=== PATIENT | male | born 1960 | race Caucasian/White ===

== ENCOUNTER → 2017-01-06 | Outpatient (CLI) | payer OTHER ==
--- NOTE | ~2017-01-06 | CR242 ---
[facility] A Service [facility] RADIOLOGY TEXT RESULTS PATIENT: BRENDA FELIX LOCATION: [facility] : 64 UNIT #: [id number] AGE: [address]: Kofi Grullon MD SEX: M ORDER DR: [id number] [address] [address] [id number] O MR#: [id number] Acc #: [id number] NAME: BRENDA FELIX : 1960 SEX: M STUDY DATE/TIME: 01/06/2017 16:38 UNIT: [facility] ROOM: STUDY DESCRIPTION: CR Thoracic Spine 2 Views Attending Physician: Kofi Grullon M.D. Referring Physician: Kofi Grullon M.D. Ordering Physician: Kofi Grullon M.D. MEDICAL IMAGING REPORT This report is preliminary unless electronic signature is present EXAM Thoracic spine plain films HISTORY Pain in neck that radiates distally. Pain centralized in the mid-back. Symptoms for 2-3 months. Patient fell a few years ago but pain has worsened in the past 2-3 months. TECHNIQUE AP, lateral and swimmer's views of the thoracic spine reviewed. COMPARISON STUDIES None. FINDINGS There is normal alignment. No acute fracture is suspected. No bone destruction suspected. IMPRESSION Negative plain film assessment of the thoracic spine. Dictated by... Jo Ivy M.D. THIS IS AN ELECTRONICALLY VERIFIED REPORT Jo Ivy M.D. at 01/07/2017 10:45 AM SAC/pcl TD: 01/06/2017 21:38 JOB #: [id number] [facility] A Service [facility] RADIOLOGY TEXT RESULTS PATIENT: BRENDA FELIX LOCATION: [facility] : 64 UNIT #: [id number] AGE: [address]: Kofi Grullon MD SEX: M ORDER DR: MEDICAL IMAGING REPORT Page 1 of 1 COPY
--- NOTE | ~2017-01-06 | CR181 ---
[facility] A Service of [facility] RADIOLOGY TEXT RESULTS PATIENT: BRENDA FELIX [id number] : 64 UNIT #: [id number] AGE: [address]: Kofi Grullon MD SEX: M ORDER DR: [id number] [facility] [address] [place], [place] [address] [id number] O MR#: [id number] Acc #: [id number] NAME: BRENDA FELIX : 1960 SEX: M STUDY DATE/TIME: 01/06/2017 16:41 UNIT: [facility] ROOM: STUDY DESCRIPTION: CR Lumbar Spine 2 or 3 Views Attending Physician: Kofi Grullon M.D. Referring Physician: Kofi Grullon M.D. Ordering Physician: Kofi Grullon M.D. Primary Care Physician: Primary Care Physician No MEDICAL IMAGING REPORT This report is preliminary unless electronic signature is present EXAM Lumbar spine plain film series HISTORY Back pain, worse for the past 2-3 months. Fell a few years ago. COMMENT AP, lateral and lumbosacral views of the lumbar spine are reviewed. COMPARISON No previous FINDINGS There is mild exaggeration of lumbar lordosis. Subtle lower lumbar dextroconvex scoliosis. There is endplate spondylosis best appreciated at L3-L4 with some anterior endplate spondylosis upper margin of L3. There is loss of disc height at L4-L5 and L5-S1, which is approximately moderate and milder loss of disc height than the 3-4 level. This likely is some lower lumbar facet arthritis. No acute fracture or bone destruction. If more information is needed, the patient is best assessed further with a MRI if a candidate. There are vascular calcifications present. IMPRESSION Plain film evidence for lumbar degenerative disease. If more information is needed and the patient is a candidate, he is best assessed further with a MRI. Dictated by... Jo Ivy M.D. [facility] A Service [facility] RADIOLOGY TEXT RESULTS PATIENT: BRENDA FELIX LOCATION: [facility] #: [id number] : 64 UNIT #: [id number] AGE: [address]: Kofi Grullon MD SEX: M ORDER DR: THIS IS AN ELECTRONICALLY VERIFIED REPORT Jo Ivy M.D. at 01/07/2017 10:45 AM SAC/to TD: 01/06/2017 21:39 JOB #: [id number] MEDICAL IMAGING REPORT Page 1 of 1 COPY
--- NOTE | ~2017-01-06 | CR58 ---
[facility] A Service of [facility] RADIOLOGY TEXT RESULTS PATIENT: BRENDA FELIX LOCATION: [facility] : 64 UNIT #: [id number] AGE: [address]: Kofi Grullon MD SEX: M ORDER DR: [id number] [facility] [address] [place], [place] [address] [id number] O MR#: [id number] Acc #: [id number] NAME: BRENDA FELIX : 1960 SEX: M STUDY DATE/TIME: 01/06/2017 16:32 UNIT: [facility] ROOM: STUDY DESCRIPTION: CR Cervical Spine 2 or 3 Views Attending Physician: Kofi Grullon M.D. Referring Physician: Kofi Grullon M.D. Ordering Physician: Kofi Grullon M.D. MEDICAL IMAGING REPORT This report is preliminary unless electronic signature is present EXAM Cervical spine plain films HISTORY Pain in neck radiating distally. Pain is centralized in the mid-back. Symptoms for 2-3 months. Patient fell 2 years ago and landed on his head but pain has worsened in last 2-3 months. Neck pain and back pain. TECHNIQUE AP, lateral, odontoid views of the cervical spine reviewed. COMPARISON STUDIES None. FINDINGS There is exaggerated cervical lordosis and about 3-4 mm of retrolisthesis of C5 on C6. There is associated loss of disc height and endplate spondylosis, worse posteriorly. There is also loss of disc height and endplate spondylosis at C4-C5. I suspect the retrolisthesis is degenerative but I recommend the patient undergo passive flexion/extension imaging of the cervical spine to evaluate for abnormal motion. There is also facet degenerative change at C7-T1. The prevertebral soft tissues are normal. No acute fracture is suspected. Cervical vertebral bodies are seen from C1 to the top of T1. Vascular calcification noted at carotid bifurcation levels but this is best pursued with carotid Doppler ultrasonography. IMPRESSION 1. About 4 mm retrolisthesis of C5 on C6, which is probably degenerative. I would recommend that this patient be further evaluated with passive flexion/extension views of the cervical spine to evaluate for possible abnormal motion. There is plain film STS. [facility] A Service of [facility] RADIOLOGY TEXT RESULTS PATIENT: BRENDA FELIX [id number] 64 UNIT #: [id number] AGE: [address]: Kofi Grullon MD SEX: M ORDER DR: evidence for degenerative disc disease at C4-C5 and C5-C6 and facet degenerative change at C7-T1. If more information is needed and the patient is a candidate, the degenerative disease is best pursued further with a MRI of the cervical spine. 2. There are vascular calcifications at the carotid bifurcations, best pursued with carotid Doppler ultrasound. Dictated by... Jo Ivy M.D. THIS IS AN ELECTRONICALLY VERIFIED REPORT Jo Ivy M.D. at 01/07/2017 10:45 AM HOLLIE/alma TD: 01/06/2017 21:19 JOB #: [id number] MEDICAL IMAGING REPORT Page 1 of 1 COPY
== END | disposition home or self-care (01) ==
LOC: CRAD 16:16
DX: M54.2 Cervicalgia (principal); M54.6 Pain in thoracic spine; M43.12 Spondylolisthesis, cervical region; M50.321 Other cervical disc degeneration at C4-C5 level; M50.322 Other cervical disc degeneration at C5-C6 level; M47.893 Other spondylosis, cervicothoracic region; I65.23 Occlusion and stenosis of bilateral carotid arteries; M51.36 Other intervertebral disc degeneration, lumbar region
CPT/HCPCS: 72040; 72070; 72100